=== PATIENT | male | born 1975 | race Caucasian/White ===

== ENCOUNTER 2024-06-07 18:23 | Emergency (ER) | payer OTHER, MEDICAID, SELFPAY ==
[2024-06-07 18:27] VITALS: BP 177/119; PULSE 102; RESP 19; TEMP 36.9; O2SAT 99; BMI 25.7
--- NOTE | 2024-06-07 18:45 | PD.EDMEDCL ---
ED Medical Clearance E/[facility] General Chief complaint: Medical Clearance Stated complaint: MEDICAL CLEARANCE Time Seen by Provider: 06/07/24 18:36 Arrival date/time: 06/07/24 18:23 RME / HPI RME / HPI Narrative: 49-year-old male patient with no significant medical history, was brought in by EMS for evaluation regarding medical clearance. Apparently patient was noted to have elevated blood pressure while in the retirement. Patient is currently not having any symptoms no chest pain no headache no neck pain. Patient is not taking any medication for blood pressure. In the triage patient blood pressure was noted to be 177/119. Related Information Home Medications ?Medication ?Instructions ?Recorded ?Confirmed alprazolam 0.25 mg tablet 0.25 mg PO BID PRN PRN #0 tabs 10/03/16 esomeprazole magnesium 40 mg 40 mg PO QDAY ##0 11/27/16 capsule,delayed release (Nexium) ranitidine HCl 75 mg tablet 75 mg PO BID #0 tabs 11/27/16 (Zantac) Allergies Allergy/AdvReac Type Severity Reaction Status Date / Time No Known Allergies Allergy Verified 06/07/24 19:11 Review of Systems Review of Systems Narrative Review of Systems: Review of system reviewed and within normal limits except mentioned in HPI ED Exam Narrative Physical exam: VITAL SIGNS: Reviewed. GENERAL APPEARANCE: Alert and interactive, follows commands, no acute distress, HEAD AND FACE: Non-traumatic. ENT: PERRL, pink conjunctivitis, eyelid no trauma, Mucous membrane moist. NECK: Supple, nontender, no nuchal rigidity. CHEST: No tenderness, no crepitus, no paradoxical movement, no retractions. LUNGS: Clear, well ventilated, symmetric, no rales, no wheezing, no ronchi, no stridor, good breath sounds bilaterally. HEART: Regular rate, regular rhythm, no murmur, no gallops. ABDOMEN: Soft, positive bowel sounds, nondistended, no guarding, nontender, no rebound, no masses, RECTAL: Deferred. GENITAL: Deferred. NEUROLOGICAL: Gross motor function intact sensory function intact, Appropriate for age. MUSCULOSKELETAL: low back nontender, full range of motion. EXTREMITIES: Nontender, full range of motion. SKIN: Color pink, dry, no rash, no lacerations, no abrasions, no contusions. LYMPHATICS: Deferred. Course Quality Measures none Orders Category Date Time Status NIFEdipine [Procardia] Med 06/07/24 18:44 Discontinued 20 mg PO X1 ONE Vital Signs Vital signs: Vital Signs Temperature 98.5 F 06/07/24 18:27 Pulse Rate 102 H 06/07/24 18:27 Respiratory Rate 19 06/07/24 18:27 Blood Pressure 177/119 H 06/07/24 18:27 Pulse Oximetry (%) 99 06/07/24 18:27 Oxygen Delivery Method Room Air 06/07/24 18:27 Medical Clearance MDM Narrative MDM Narrative:: 49-year-old male patient with no significant medical history, was brought in by EMS for evaluation regarding medical clearance. Apparently patient was noted to have elevated blood pressure while in the retirement. Patient is currently not having any symptoms no chest pain no headache no neck pain. Patient is not taking any medication for blood pressure. In the triage patient blood pressure was noted to be 177/119. Patient received Procardia, blood pressure went down to 145/103 with no complaints. Patient is medically cleared for incarceration. Patient data External records reviewed:: None Clinical information provided by:: patient and law enforcement Social determinants that could affect healthcare access:: none Patient has the following chronic illnesses:: None How is presenting disease/condition affected by chronic disease/condition?: no chronic disease Evaluation data The following diagnostics were reviewed and interpreted by me:: other (specify) Lab and/or radiology exams considered but not ordered:: None Interpretation Summary: Plan Medications / Prescriptions Medications or Prescriptions considered but not ordered:: None Medication administrations:: Medication Administration History Discontinued Medications Nifedipine (Nifedipine 10 Mg Capsule) 20 mg PO X1 ONE Stop: 06/07/24 18:45 Last Admin: 06/07/24 19:17 Dose: 20 mg Documented By: MILLICENT Llamas Consultations Consultation(s) initiated? (list below): No Diagnosis Medical Clearance Differential Diagnosis: other (Medical clearance for incarceration, hypertension, anxiety) Most likely diagnosis given after review of the tests above:: Medical clearance for incarceration, elevated blood pressure, situational Admission Indicated Admission indicated?: not indicated Explain why admission is indicated or not indicated:: Cleared for incarceration Admission Request Was there a request for admission?: No Disposition Plan Disposition Plan: Discharge Discharge Attestation Discharge Attestation: Patient condition: Stable Discharge Plan Plan Patient Disposition: HOME (Self Care) Disposition Comment: Stable Prescriptions/Referrals Prescriptions/Med Rec: No Action alprazolam 0.25 MG tablet 0.25 mg PO BID PRN (Reason: PRN) Qty: 0 ranitidine HCl [Zantac 75] 75 MG tablet 75 mg PO BID Qty: 0 esomeprazole magnesium [Nexium] 40 MG capsule,delayed release(DR/EC) 40 mg PO QDAY Qty: 0 Referrals: No Primary/Family,Physician [Primary Care Provider] - In 1 week Problem List Clinical Impression: Medical clearance for incarceration, Elevated blood pressure, situational Patient/Caregiver Discharge Instructions Discharge Activity: activity as tolerated Education Materials: Reducing Your Health Risks ... Additional Instructions: Thank you for the opportunity for serving you today. You are stable for discharged . You are advised to: Follow-up with your PCP in 1 to 2 days once you get out of retirement Return to ED for worsening of symptoms Increase oral fluids Monitor your blood pressure twice a day and show it to your PCP in 1- 2 weeks Print Language: Luxembourgish Stand Alone Forms: Jesi Award Info., Patient Portal Info Letter PA/JUAN PABLO Supervising Physician JACINDA/JUAN PABLO Supervising Physician: MD Alayna
[2024-06-07 19:17] VITALS: BP 165/120; PULSE 100
[2024-06-07] MEDS: NIFEdipine 10 MG CAPSULE 20 MG PO (19:17)
[2024-06-07 20:12] VITALS: BP 145/103
== END 2024-06-07 20:18 | disposition home or self-care (01) ==
PROVIDERS: Emergency Provider Emergency Medicine
DX: Z02.89 Encounter for other administrative examinations (principal); R03.0 Elevated blood-pressure reading, without diagnosis of hypertension
CPT/HCPCS: 99282; A9270